=== PATIENT | male | born 1950 | race African-American/Black ===

== ENCOUNTER 2016-11-23 12:05 | Inpatient (IN) | payer OTHER ==
[~2016-11-23] VITALS: Ht 190.5 cm; Wt 120.4 kg
[2016-11-23] VITALS (10 sets, daily range): BP systolic 132–167; BP diastolic 72–90; PULSE 54–86; RESP 17–24; TEMP 97.8–99.3; O2SAT 96–100
[~2016-11-23 12:05] MED LIST: ALBU0.086 INH; ALBU6.7H INH; ALBU8I INH; INDO50 PO
[2016-11-23] MEDS ORDERED: VENTAER INH (12:26)
[2016-11-23] MEDS ORDERED: ASPIRIN 325 MG TAB PO ONE (12:30)
[2016-11-23] MEDS ORDERED: NITROGLYCERIN 0.4 MG SL 25 TABS/BTL SL ONE (12:30)
[2016-11-23] MEDS ORDERED: SODIUM CHLORID 0.9% 500 ML INJ 500 ML IV ONE (12:30)
--- NOTE | 2016-11-23 12:34 | PD ---
HPI Chief Complaint: Chest Pain Time Seen by Provider: 12:30 Travel History International Travel<30 days: No Contact w/Intl Traveler<30days: No Traveled to known affect area: No History of Present Illness HPI 66-year-old male that presents to the ED for evaluation of severe left-sided chest pain. Patient has had this since yesterday. Per patient is getting worse. Per patient he feels like it is spreading to his left shoulder. No history of heart disease but has a family history of heart disease. He states that he uses an inhaler for asthma but no other medications. He has not taken any aspirin or any medications for this. Denies any abdominal pain. Nausea or vomiting. Per patient she feels slightly short of breath. Per patient the pain is pressure-like any severe 8 out of 10. He does state having some diaphoresis. He takes no aspirin. He denies any blood thinner use. No recent travel. No smoking history recently but he does have an old smoking history. Has no waistband setter lockstitch. Follow up with the [facility] for his care. Takes no medications. PFSH Past Medical History Asthma: Yes COPD: Yes Diminished Hearing: No Respiratory: Yes (COPD) Tetanus Vaccination: Unknown Influenza Vaccination: No ?: Not Past Surgical History Other Surgery: Yes (lypoma removal l neck) Social History Alcohol Use: Yes (OCC) Tobacco Use: No Substance Use: No Allergies-Medications (Allergen,Severity, Reaction): Coded Allergies: No Known Allergies (Verified , 11/23/16) Reported Meds & Prescriptions Reported Meds & Active Scripts Active Reported Ventolin Hfa 18 GM Inh (Albuterol Sulfate) 90 Mcg/Act Aer 2 Puff INH Q4-6H PRN Review of Systems Except as stated in HPI: all other systems reviewed are Neg Physical Exam Narrative GENERAL: SKIN: Warm and dry. HEAD: Atraumatic. Normocephalic. EYES: Pupils equal and round. No scleral icterus. No injection or drainage. ENT: No nasal bleeding or discharge. Mucous membranes pink and moist. Tongue is midline. No uvula deviation. NECK: Trachea midline. No JVD. CARDIOVASCULAR: Regular rate and rhythm. No murmurs, S3, S4. Chest pain is not reproducible with touch. RESPIRATORY: No accessory muscle use. Clear to auscultation. Breath sounds equal bilaterally. GASTROINTESTINAL: Abdomen soft, non-tender, nondistended. Hepatic and splenic margins not palpable. MUSCULOSKELETAL: Extremities without clubbing, cyanosis, or edema. No obvious deformities. Full range of motion of the upper and lower extremities bilaterally. 2+ pulses bilaterally. NEUROLOGICAL: Awake and alert. No obvious cranial nerve deficits. Motor grossly within normal limits. Five out of 5 muscle strength in the arms and legs. Normal speech. PSYCHIATRIC: Appropriate mood and affect; insight and judgment normal. Data Data Last Documented VS Vital Signs Date Time Temp Pulse Resp B/P Pulse Ox O2 Delivery O2 Flow Rate FiO2 11/23/16 13:17 54 22 134/72 96 Room Air 11/23/16 12:08 97.8 Orders Electrocardiogram (11/23/16 12:22) Basic Metabolic Panel (Bmp) (11/23/16 12:22) Ckmb (Isoenzyme) Profile (11/23/16 12:22) Complete Blood Count With Diff (11/23/16 12:22) Magnesium (Mg) (11/23/16 12:22) Prothrombin Time / Inr (Pt) (11/23/16 12:22) Act Partial Throm Time (Ptt) (11/23/16 12:22) Troponin I (11/23/16 12:22) Chest, Single Ap (11/23/16 12:22) Ecg Monitoring (11/23/16 12:22) Bilateral Bp Monitoring (11/23/16 12:22) Iv Access Insert/Monitor (11/23/16 12:22) Oximetry (11/23/16 12:22) Oxygen Administration (11/23/16 12:22) Aspirin (Aspirin) (11/23/16 12:30) Nitroglycerin Sl (Nitrostat Sl) (11/23/16 12:30) Sodium Chlorid 0.9% 500 Ml Inj (Ns 500 M (11/23/16 12:30) CKMB (11/23/16 12:21) CKMB% (11/23/16 12:21) Morphine Inj (Morphine Inj) (11/23/16 13:15) Ondansetron Inj (Zofran Inj) (11/23/16 13:15) Admit Order (Ed Use Only) (11/23/16 13:15) Labs Laboratory Tests Test 11/23/16 12:21 White Blood Count 6.0 TH/MM3 Red Blood Count 5.23 MIL/MM3 Hemoglobin 16.0 GM/DL Hematocrit 46.7 % Mean Corpuscular Volume 89.2 FL Mean Corpuscular Hemoglobin 30.7 PG Mean Corpuscular Hemoglobin 34.4 % Concent Red Cell Distribution Width 13.0 % Platelet Count 186 TH/MM3 Mean Platelet Volume 9.3 FL Neutrophils (%) (Auto) 58.5 % Lymphocytes (%) (Auto) 29.9 % Monocytes (%) (Auto) 8.1 % Eosinophils (%) (Auto) 2.9 % Basophils (%) (Auto) 0.6 % Neutrophils # (Auto) 3.5 TH/MM3 Lymphocytes # (Auto) 1.8 TH/MM3 Monocytes # (Auto) 0.5 TH/MM3 Eosinophils # (Auto) 0.2 TH/MM3 Basophils # (Auto) 0.0 TH/MM3 CBC Comment DIFF FINAL Differential Comment Prothrombin Time 11.2 SEC Prothromb Time International 1.0 RATIO Ratio Activated Partial 28.0 SEC Thromboplast Time D-Dimer Quantitative (PE/DVT) 0.26 MG/L FEU Sodium Level 141 MEQ/L Potassium Level 3.9 MEQ/L Chloride Level 107 MEQ/L Carbon Dioxide Level 29.4 MEQ/L Anion Gap 5 MEQ/L Blood Urea Nitrogen 16 MG/DL Creatinine 1.38 MG/DL Estimat Glomerular Filtration 63 ML/MIN Rate Random Glucose 111 MG/DL Calcium Level 9.2 MG/DL Magnesium Level 2.0 MG/DL Total Creatine Kinase 146 U/L Creatine Kinase MB 1.3 NG/ML Troponin I LESS THAN 0.02 NG/ML Lipase 1046 U/L MDM Medical Decision Making Medical Screen Exam Complete: Yes Emergency Medical Condition: Yes Medical Record Reviewed: Yes Interpretation(s) EKG shows sinus rhythm with no sign of acute ischemia or arrhythmia read by me and attending Dr. Cardoza. CBC & BMP Diagram 11/23/16 12:21 troponin and CKMB negative D-dimmer negative Lipase 1000s Differential Diagnosis Chest pain versus cardiac chest pain versus ACS versus angina versus nSTEMI versus pneumothorax versus pneumonia versus mass Narrative Course 66-year-old male that presents to the ED for evaluation of left-sided chest pain. Patient was properly examined and was found to have signs and symptoms very concerning for ACS. Initial EKG was evaluated by me and my attending Dr. villegas and states that this is not a STEMI. No sign of LV be as well. At this time we'll do cardiac workup. Patient was given aspirin as well as nitroglycerin here. Labs and imaging showed no sign of acute disease. Troponin was negative. Patient still having some discomfort. Patient was given morphine as well as Zofran. Case was discussed in my attending Dr. Cardoza who agrees to admission to the chest pain center. Patient was admitted to chest pain center. Patient agrees with this. At 14:00 my attending evaluated the patient and recommends a lipase as patient continues to have some discomfort. Lipase positive of 1000. Likely this is acute pancreatitis and not cardiac in nature. Spoke with the residents who agreed to admission. Admission to the chest pain center was canceled and change to the residents for evaluation of acute pancreatitis. Diagnosis Primary Impression: Pancreatitis, acute Qualified Code: K85.90 - Acute pancreatitis, unspecified complication status, unspecified pancreatitis type Admitting Information Admitting Physician Requests: Vishal Lan Nov 23, 2016 12:34
--- NOTE | 2016-11-23 12:37 | RADRPT ---
EXAM DATE/TIME: 11/23/2016 12:19 [facility] COMPARISON: CHEST SINGLE AP, May 02, 2013, 20:02. INDICATIONS : Left side chest pain. MEDICAL HISTORY : None. SURGICAL HISTORY : None. ENCOUNTER: Initial ACUITY: 1 day PAIN SCORE: 7/10 LOCATION: Bilateral chest FINDINGS: A single view of the chest demonstrates the lungs to be symmetrically aerated without evidence of mas s, infiltrate or effusion. The cardiomediastinal contours are unremarkable. Osseous structures are intact. CONCLUSION: No acute disease. Kev Hines MD on November 23, 2016 at 12:34 Board Certified Radiologist. This report was verified electronically.
[2016-11-23 12:40] LABS: AUTOMATED NEUTROPHIL # 3.5 TH/MM3 (1.8-7.7); BASOPHIL % 0.6 % (0.0-2.0); EOSINOPHIL # 0.2 TH/MM3 (0-0.4); EOSINOPHIL % 2.9 % (0.0-4.0); HEMATOCRIT 46.7 % (39.0-51.0); HEMO FLAGS DIFF FINAL; LYMPH % 29.9 % (9.0-44.0); LYMPHOCYTE # 1.8 TH/MM3 (1.0-4.8); MEAN CELL VOLUME 89.2 FL (80.0-100.0); MEAN CORPUSCULAR HEMOGLOBIN 30.7 PG (27.0-34.0); MEAN CORPUSCULAR HGB CONC 34.4 % (32.0-36.0); MONO % 8.1 % (0.0-8.0); NEUT % 58.5 % (16.0-70.0); PLATELET COUNT 186 TH/MM3 (150-450); RED BLOOD COUNT 5.23 MIL/MM3 (4.50-5.90)
[2016-11-23 12:51] LABS: ANION GAP 5 MEQ/L (5-15); BICARBONATE 29.4 MEQ/L (21.0-32.0); BLOOD UREA NITROGEN 16 MG/DL (7-18); CHLORIDE 107 MEQ/L (98-107); GLOMERULAR FILTRATION RATE 63 ML/MIN (>89); POTASSIUM 3.9 MEQ/L (3.5-5.1); SODIUM (NA) 141 MEQ/L (136-145)
[2016-11-23 12:55] LABS: CREATINE KINASE 146 U/L (39-308)
[2016-11-23 12:59] LABS: PROTHROMBIN TIME - PATIENT 11.2 SEC (9.8-11.6)
[2016-11-23 13:08] LABS: CKMB 1.3 NG/ML (0.5-3.6)
[2016-11-23] MEDS ORDERED: MORPHINE SULFATE 4 MG/ML INJ IV PUSH ONE (13:15)
[2016-11-23] MEDS ORDERED: ONDANSETRON HCL 4 MG/2 ML VIAL IV PUSH ONE (13:15)
[2016-11-23] MEDS ORDERED: SODIUM CHLOR 0.9% 1000 ML INJ 1,000 ML IV SCH (14:02)
--- NOTE | 2016-11-23 14:52 | HHI.HP ---
[facility] Service Family Medicine Primary Care Physician [facility] Admission Diagnosis chest pain, R/o ACS Diagnoses: International Travel<30 Days: No Contact w/Intl Traveler<30days: No Known Affected Area: No History of Present Illness 66 y/o M w/ hx of bronchitis presents with left sided chest pain radiating to the shoulder and back. He describes pain as initially 10/10 aching and pleuritic. Is relieved by morphine .Worse with movement. Uses a combivent PRN for shortness of breath from bronchitis. Has no other medical conditions. Eats a fatty diet. Ate fried pork and fried chicken last night and a burger two days ago. Denies ETOH use, smoking, drug use, and OTC meds. Endorses feeling palpitations in the past couple of days and feeling dizzy while walking. Describes these spells as lasting a very short period of time while walking. Describes weight loss from 230 to 260 over last month due to decreased appetite. Denies orthostasis, visual disturbances, syncope, seizure hx, or cough. Denies nausea/vomiting, diarrhea, melena. (Court Deleon MD R1) Review of Systems Constitutional: COMPLAINS OF: Weight loss (down from 230 to 260 over last month ), DENIES: Fever, Change in appetite, Night Sweats Endocrine: DENIES: Heat/cold intolerance, Polydipsia, Polyuria Eyes: COMPLAINS OF: Blurred vision, DENIES: Vision loss, Double Vision Ears, nose, mouth, throat: DENIES: Hearing loss, Vertigo, Hoarseness Respiratory: DENIES: Cough, Snoring, Shortness of breath Cardiovascular: COMPLAINS OF: Chest pain, Palpitations, DENIES: Lower Extremity Edema Gastrointestinal: COMPLAINS OF: Abdominal pain, DENIES: Bloody stools, Diarrhea, Vomiting Genitourinary: DENIES: Urinary incontinence, Urgency, Dysuria Musculoskeletal: COMPLAINS OF: Joint pain, DENIES: Muscle aches, Back pain Integumentary: DENIES: Abnormal pigmentation, Pruritus, Rash Hematologic/lymphatic: DENIES: Bruising Neurologic: DENIES: Abnormal gait, Headache, Paresthesias Psychiatric: DENIES: Anxiety, Depression, Agitation (Court Deleon MD R1) Past Family Social History Past Medical History Bronchitis, uses Combivent inhaler as needed. Past Surgical History Lipoma 2004 (Court Deleon MD R1) Allergies: Coded Allergies: No Known Allergies (Verified , 11/23/16) Family History Father 67, CHF Mother 90, pulmonary fibrosis Social History no drugs. occasional alcohol (a few times a month). (Court Deleon MD R1) Physical Exam Vital Signs Vital Signs Date Time Temp Pulse Resp B/P Pulse Ox O2 Delivery O2 Flow Rate FiO2 11/23/16 14:16 59 17 139/73 100 Nasal Cannula 2 11/23/16 14:06 17 11/23/16 13:18 98 Nasal Cannula 2 11/23/16 13:17 54 22 134/72 96 Room Air 11/23/16 12:24 98 Room Air 11/23/16 12:24 98 Room Air 11/23/16 12:21 61 21 149/79 98 Room Air 11/23/16 12:08 97.8 54 24 159/82 96 Room Air Physical Exam GENERAL: This is a well-nourished, well-developed patient, in no apparent distress. SKIN: Cool and dry. HEAD: Atraumatic. Normocephalic. EYES: Extraocular motions intact. No scleral icterus. No injection or drainage. NECK: Trachea midline. No JVD. CARDIOVASCULAR: Regular rate and rhythm without murmurs, gallops, or rubs. RESPIRATORY: Clear to auscultation. Breath sounds equal bilaterally. No wheezes , rales, or rhonchi. GASTROINTESTINAL: Abdomen soft, nondistended, left quadrant slightly tender to palpation. No hepato-splenomegaly, or palpable masses. No guarding. MUSCULOSKELETAL: Extremities without edema. ROM normal. NEUROLOGICAL: Awake and alert. Laboratory Laboratory Tests Test 11/23/16 12:21 White Blood Count 6.0 Red Blood Count 5.23 Hemoglobin 16.0 Hematocrit 46.7 Mean Corpuscular Volume 89.2 Mean Corpuscular Hemoglobin 30.7 Mean Corpuscular Hemoglobin 34.4 Concent Red Cell Distribution Width 13.0 Platelet Count 186 Mean Platelet Volume 9.3 Neutrophils (%) (Auto) 58.5 Lymphocytes (%) (Auto) 29.9 Monocytes (%) (Auto) 8.1 Eosinophils (%) (Auto) 2.9 Basophils (%) (Auto) 0.6 Neutrophils # (Auto) 3.5 Lymphocytes # (Auto) 1.8 Monocytes # (Auto) 0.5 Eosinophils # (Auto) 0.2 Basophils # (Auto) 0.0 CBC Comment DIFF FINAL Differential Comment Prothrombin Time 11.2 Prothromb Time International 1.0 Ratio Activated Partial 28.0 Thromboplast Time D-Dimer Quantitative (PE/DVT) 0.26 Sodium Level 141 Potassium Level 3.9 Chloride Level 107 Carbon Dioxide Level 29.4 Anion Gap 5 Blood Urea Nitrogen 16 Creatinine 1.38 Estimat Glomerular Filtration 63 Rate Random Glucose 111 Calcium Level 9.2 Magnesium Level 2.0 Total Creatine Kinase 146 Creatine Kinase MB 1.3 Troponin I LESS THAN 0.02 Lipase 1046 (Court Deleon MD R1) Result Diagram: 11/23/16 1221 11/23/16 1221 Imaging Last 24 hours Impressions Gall Bladder Ultrasound 11/23/16 1459 Signed Impressions: Service Date/Time: Wednesday, November 23, 2016 16:17 - CONCLUSION: Right renal cyst. The pancreas is not visualized on this ultrasound examination. Riki Powers MD Abdomen/Pelvis CT 11/23/16 7573 Signed Impressions: Service Date/Time: Wednesday, November 23, 2016 15:51 - CONCLUSION: 1. Prominence and heterogeneity of the pancreatic uncinate process. This is likely within normal limits. The fat around the pancreas appears normal. A distinct mass is not seen. Focal pancreatitis without surrounding inflammatory change cannot be excluded. One could follow this mild prominence of the uncinate process with an MRI examination is an outpatient. 2. Hepatic cysts. 3. Mild atelectasis or consolidation of the lung bases being worse on the left. 4. Small subcentimeter hypodensity in the liver. This is nonspecific. Statistically likely representing cyst or hemangioma. Riki Powers MD Chest X-Ray 11/23/16 1222 Signed Impressions: Service Date/Time: Wednesday, November 23, 2016 12:19 - CONCLUSION: No acute disease. Kev Hines MD Course Recieved IV NS, NO PO 1x, ASA PO. EKG and lipase ordered, Troponins ordered, PT , PTT,, CMB, Zofran, morphine push 1x in the ED. NPO. Admitted to floor, placed on NPO, LR, morphine 5 mg push PRN, dilaudid 1 mg IV PRN, Zofran. (Court Deleon MD R1) Assessment and Plan Assessment and Plan 66 y/o M admitted for pancreatitis. // Upper quadrant abdominal pain - diff: pancreatitis secondary to choledocholithiasis v idiopathic v pancreatic carcinoma - pain radiating to shoulder, lipase 1046 , wt loss of 30 lbs over a month - WBC wnl - CT and U/S do not show obstruction of biliary, pancreatic or hepatic ducts - Will order LDH, serum amylase, and LFTs to further determine cause - CBC, CMP, LFTs tomorrow - Continue NPO, IV fluids (LR 250ml/hr with 10meq K+), and morphine and diluadid for pain // Atelactasis (mild) of lung bases - satting 100% on 2 L/min NC - denies SOB - duonebs PRN, incentive spirometry - pain control for deep inspiration - will continue to monitor for improvement // FEN - NPO //Code: FULL //DVT Prophy: Lovenox // Dispo: Monitor overnight and assess for improvement in labs and pain tomorrow. Court Deleon MD R1 Code Status FULL Discussed Condition With Patient and daughter at bedside. (Court Deleon MD R1) Attending Attestation Patient seen and examined. Case reviewed and discussed with the resident team. Agree with plan of care as discussed with me and documented in the resident note. present during history and exam in entirety with Dr Deleon (Nerissa Ray MD) Problem List: (1) Pancreatitis, acute Status: Acute (Court Deleon MD R1) Physician Certification 2 Midnight Certification Type: Admission for Inpatient Services Order for Inpatient Services The services are ordered in accordance with Medicare regulations or non- Medicare payer requirements, as applicable. In the case of services not specified as inpatient-only, they are appropriately provided as inpatient services in accordance with the 2-midnight benchmark. Estimated LOS (days): 2 days is the estimated time the patient will need to remain in the hospital, assuming treatment plan goals are met and no additional complications. Post-Hospital Plan: Home (Court Deleon MD R1) Post-Hospital Plan: Home (Nerissa Ray MD) Problem Qualifiers (1) Pancreatitis, acute: Qualified Code: K85.00 - Idiopathic acute pancreatitis without infection or necrosis Court Deleon MD R1 Nov 23, 2016 14:52 Nerissa Ray MD Nov 24, 2016 15:35
--- NOTE | 2016-11-23 14:59 | PD ---
Data Data Last Documented VS Vital Signs Date Time Temp Pulse Resp B/P Pulse Ox O2 Delivery O2 Flow Rate FiO2 11/23/16 13:17 54 22 134/72 96 Room Air 11/23/16 12:08 97.8 Orders Electrocardiogram (11/23/16 12:22) Basic Metabolic Panel (Bmp) (11/23/16 12:22) Ckmb (Isoenzyme) Profile (11/23/16 12:22) Complete Blood Count With Diff (11/23/16 12:22) Magnesium (Mg) (11/23/16 12:22) Prothrombin Time / Inr (Pt) (11/23/16 12:22) Act Partial Throm Time (Ptt) (11/23/16 12:22) Troponin I (11/23/16 12:22) Chest, Single Ap (11/23/16 12:22) Ecg Monitoring (11/23/16 12:22) Bilateral Bp Monitoring (11/23/16 12:22) Iv Access Insert/Monitor (11/23/16 12:22) Oximetry (11/23/16 12:22) Oxygen Administration (11/23/16 12:22) Aspirin (Aspirin) (11/23/16 12:30) Nitroglycerin Sl (Nitrostat Sl) (11/23/16 12:30) Sodium Chlorid 0.9% 500 Ml Inj (Ns 500 M (11/23/16 12:30) CKMB (11/23/16 12:21) CKMB% (11/23/16 12:21) Morphine Inj (Morphine Inj) (11/23/16 13:15) Ondansetron Inj (Zofran Inj) (11/23/16 13:15) Admit Order (Ed Use Only) (11/23/16 13:15) Labs Laboratory Tests Test 11/23/16 12:21 White Blood Count 6.0 TH/MM3 Red Blood Count 5.23 MIL/MM3 Hemoglobin 16.0 GM/DL Hematocrit 46.7 % Mean Corpuscular Volume 89.2 FL Mean Corpuscular Hemoglobin 30.7 PG Mean Corpuscular Hemoglobin 34.4 % Concent Red Cell Distribution Width 13.0 % Platelet Count 186 TH/MM3 Mean Platelet Volume 9.3 FL Neutrophils (%) (Auto) 58.5 % Lymphocytes (%) (Auto) 29.9 % Monocytes (%) (Auto) 8.1 % Eosinophils (%) (Auto) 2.9 % Basophils (%) (Auto) 0.6 % Neutrophils # (Auto) 3.5 TH/MM3 Lymphocytes # (Auto) 1.8 TH/MM3 Monocytes # (Auto) 0.5 TH/MM3 Eosinophils # (Auto) 0.2 TH/MM3 Basophils # (Auto) 0.0 TH/MM3 CBC Comment DIFF FINAL Differential Comment Prothrombin Time 11.2 SEC Prothromb Time International 1.0 RATIO Ratio Activated Partial 28.0 SEC Thromboplast Time D-Dimer Quantitative (PE/DVT) 0.26 MG/L FEU Sodium Level 141 MEQ/L Potassium Level 3.9 MEQ/L Chloride Level 107 MEQ/L Carbon Dioxide Level 29.4 MEQ/L Anion Gap 5 MEQ/L Blood Urea Nitrogen 16 MG/DL Creatinine 1.38 MG/DL Estimat Glomerular Filtration 63 ML/MIN Rate Random Glucose 111 MG/DL Calcium Level 9.2 MG/DL Magnesium Level 2.0 MG/DL Total Creatine Kinase 146 U/L Creatine Kinase MB 1.3 NG/ML Troponin I LESS THAN 0.02 NG/ML Lipase 1046 U/L [facility] Supervised Visit with JEY: Yes Narrative Course The history, exam, and medical decision-making in the associated midlevel provider note were completed with my assistance. I reviewed and agree with the findings presented. I attest that I had a [id number] encounter with the patient on the same day, and personally performed and documented my assessment and findings in the medical record. *My assessment and Findings: This is a 66-year-old male who presents to the emergency department with left-sided chest and abdominal pain. He describes the pain as right underneath his rib cage. He has felt somewhat nauseous and short of breath. EKG is nonischemic. Labs were obtained which demonstrate a lipase of 1000. I suspect this is acute pancreatitis. Patient will be admitted for pain control. Diagnosis Primary Impression: Pancreatitis, acute Qualified Code: K85.90 - Acute pancreatitis, unspecified complication status, unspecified pancreatitis type Rosalba Cardoza MD Nov 23, 2016 14:59
[2016-11-23] MEDS ORDERED: KETOROLAC TROMETHAMINE 30 MG/ML (IVP) VIAL IVP PRN (15:00)
[2016-11-23] MEDS ORDERED: HYDROmorphone HCL PF 1 MG/ML VIAL IV PRN (15:00)
[2016-11-23] MEDS ORDERED: ONDANSETRON HCL 4 MG/2 ML VIAL IV PRN (15:00)
[2016-11-23] MEDS ORDERED: SODIUM CHLORIDE 0.9% FLUSH 10 ML FLUSH IV FLUSH PRN (15:00)
[2016-11-23] MEDS ORDERED: POTASSIUM CHLORIDE INJ 20 MEQ in SODIUM CHLOR 0.9% 1000 ML INJ 1,000 ML IV SCH (15:45)
[2016-11-23] MEDS: ENOXAPARIN SODIUM 40 MG/0.4 ML SYRINGE SQ SCH (16:00)
[2016-11-23] MEDS: POTASSIUM CHLORIDE INJ 10 MEQ in LACTATED RINGER'S 1000 ML INJ 1,000 ML IV SCH ×2 (16:00→21:41)
[2016-11-23] MEDS: RESP: ALBUTEROL 2.5 MG/IPRATROPIUM 0.5 MG NEB (SCH) NEB ×2 (16:21→19:37)
[2016-11-23] MEDS ORDERED: IOHEXOL 350 MG/ML 10 ML VIAL (for RAD DIAG) IV ONE (16:22)
--- NOTE | 2016-11-23 17:00 | RADRPT ---
EXAM DATE/TIME: 11/23/2016 15:51 [facility] COMPARISON: No previous studies available for comparison. INDICATIONS : Left upper abdomen pain today. IV CONTRAST: 86 cc Omnipaque 350 (iohexol) IV ORAL CONTRAST: No oral contrast ingested. RADIATION DOSE: 10.56 CTDIvol (mGy) MEDICAL HISTORY : lipoma SURGICAL HISTORY : lipoma removed from neck ENCOUNTER: Initial ACUITY: 1 day PAIN SCALE: 7/10 LOCATION: Left upper quadrant TECHNIQUE: Volumetric scanning of the abdomen and pelvis was performed. Using automated exposure control and ad justment of the mA and/or kV according to patient size, radiation dose was kept as low as reasonably achievable to obtain optimal diagnostic quality images. DICOM format image data is available electro nically for review and comparison. FINDINGS: LOWER LUNGS: There is mild increased density at the medial bases bilaterally being more prominent on the left. LIVER: Homogeneous density. There is a 0.8 cm hypodensity in the posterior superior aspect of the right lobe of the liver. There is no dilation of the biliary tree. No calcified gallstones. SPLEEN: Normal size without lesion. PANCREAS: Pancreatic head, body and tail appear normal. The uncinate process appears somewhat prominent and het erogeneous. A distinct mass is not seen. KIDNEYS: Normal in size and shape. There is no solid mass, stone or hydronephrosis. There is a 3.2 cm cyst at the anterior superior right kidney and a 1.3 cm cyst in the posterior mid left kidney. ADRENAL GLANDS: Within normal limits. VASCULAR: There is no aortic aneurysm. BOWEL/MESENTERY: The stomach, small bowel, and colon demonstrate no acute abnormality. There is no free intraperitone al air or fluid. ABDOMINAL WALL: Within normal limits. RETROPERITONEUM: There is no lymphadenopathy. BLADDER: No wall thickening or mass. REPRODUCTIVE: The prostate appears prominent. INGUINAL: There is no lymphadenopathy or hernia. MUSCULOSKELETAL: There is degenerative change of the lower lumbar spine. CONCLUSION: 1. Prominence and heterogeneity of the pancreatic uncinate process. This is likely within normal limi ts. The fat around the pancreas appears normal. A distinct mass is not seen. Focal pancreatitis witho ut surrounding inflammatory change cannot be excluded. One could follow this mild prominence of the u ncinate process with an MRI examination is an outpatient. 2. Hepatic cysts. 3. Mild atelectasis or consolidation of the lung bases being worse on the left. 4. Small subcentimeter hypodensity in the liver. This is nonspecific. Statistically likely representi ng cyst or hemangioma. Riki Powers MD on November 23, 2016 at 16:47 Board Certified Radiologist. This report was verified electronically.
--- NOTE | 2016-11-23 17:10 | RADRPT ---
EXAM DATE/TIME: 11/23/2016 16:17 [facility] COMPARISON: CT ABDOMEN & PELVIS W CONTRAST, November 23, 2016, 15:51. INDICATIONS : Abdominal pain. MEDICAL HISTORY : Chronic obstructive pulmonary disease. Asthma. Abdominal pain. Weight loss. Joint pain. Urticaria . SURGICAL HISTORY : Lypoma removal. ENCOUNTER: Initial ACUITY: 4-6 days PAIN SCORE: 3/10 LOCATION: Right upper quadrant MEASUREMENTS: LIVER: 15.8 cm length COMMON DUCT: 4 mm RIGHT KIDNEY: 11.0 x 4.8 x 5.1 cm FINDINGS: LIVER: Normal echotexture without focal lesion or ductal dilatation. COMMON DUCT: No intraluminal mass or stone visualized. GALLBLADDER: Contains no stones, demonstrates no wall thickening or pericholecystic fluid. PANCREAS: The pancreas is obscured by bowel gas. RIGHT KIDNEY: No evidence of hydronephrosis, stone, or solid mass. There is a 3.4 cm cyst at the upper pole. CONCLUSION: Right renal cyst. The pancreas is not visualized on this ultrasound examination. Riki Powers MD on November 23, 2016 at 17:06 Board Certified Radiologist. This report was verified electronically.
[2016-11-23] MEDS: MORPHINE SULFATE 8 MG/ML INJ IV PUSH PRN ×2 (18:01→21:51)
[2016-11-23 19:49] LABS: INDIRECT BILIRUBIN 0.4 MG/DL (0.0-0.8); TOTAL BILIRUBIN ADULT 0.5 MG/DL (0.2-1.0)
--- NOTE | 2016-11-23 21:40 | HHI.PR ---
Addendum to Inpatient Note Addendum Reason: Corrected Documentation Additional Information Patient is DNR. Court Deleon MD R1 Nov 23, 2016 21:40
[2016-11-23] MEDS: SODIUM CHLORIDE 0.9% FLUSH 10 ML FLUSH IV FLUSH SCH (21:41)
[2016-11-24] VITALS (9 sets, daily range): BP systolic 104–128; BP diastolic 60–78; PULSE 65–82; RESP 17–18; TEMP 98–98.9; O2SAT 94–98
[2016-11-24] MEDS: POTASSIUM CHLORIDE INJ 10 MEQ in LACTATED RINGER'S 1000 ML INJ 1,000 ML IV SCH ×5 (00:04→18:07)
[2016-11-24] MEDS: RESP: ALBUTEROL 2.5 MG/IPRATROPIUM 0.5 MG NEB (SCH) NEB ×4 (07:54→19:56)
[2016-11-24] MEDS: SODIUM CHLORIDE 0.9% FLUSH 10 ML FLUSH IV FLUSH SCH ×2 (09:00→21:00)
[2016-11-24] MEDS ORDERED: ACETAMINOPHEN 325 MG TAB PO PRN (10:15)
[2016-11-24] MEDS ORDERED: NALOXONE HCL 0.4 MG/ML AMP IV PRN (10:15)
[2016-11-24] MEDS ORDERED: ACETAMINOPHEN/HYDROcodone 325 MG/5 MG TAB PO PRN (10:15)
[2016-11-24] MEDS ORDERED: ACETAMINOPHEN/HYDROcodone 325 MG/7.5 MG TAB PO PRN (10:15)
[2016-11-24 10:25] LABS: AUTOMATED NEUTROPHIL # 4.2 TH/MM3 (1.8-7.7); BASOPHIL % 0.6 % (0.0-2.0); EOSINOPHIL % 0.6 % (0.0-4.0); HEMATOCRIT 39.5 % (39.0-51.0); HEMO FLAGS DIFF FINAL; LYMPH % 21.3 % (9.0-44.0); LYMPHOCYTE # 1.4 TH/MM3 (1.0-4.8); MEAN CELL VOLUME 88.6 FL (80.0-100.0); MEAN CORPUSCULAR HEMOGLOBIN 31.7 PG (27.0-34.0); MEAN CORPUSCULAR HGB CONC 35.8 % (32.0-36.0); MONO % 12.2 % (0.0-8.0); NEUT % 65.3 % (16.0-70.0); PLATELET COUNT 152 TH/MM3 (150-450); RED BLOOD COUNT 4.46 MIL/MM3 (4.50-5.90); WHITE BLOOD COUNT 6.4 TH/MM3 (4.0-11.0)
[2016-11-24 10:55] LABS: ALKALINE PHOSPHATASE 64 U/L (45-117); ALT (GPT) 21 U/L (12-78); AMYLASE 59 U/L (25-115); ANION GAP 6 MEQ/L (5-15); AST (GOT) 11 U/L (15-37); BICARBONATE 27.3 MEQ/L (21.0-32.0); BLOOD UREA NITROGEN 11 MG/DL (7-18); CHLORIDE 105 MEQ/L (98-107); GLOMERULAR FILTRATION RATE 90 ML/MIN (>89); POTASSIUM 3.6 MEQ/L (3.5-5.1); SODIUM (NA) 138 MEQ/L (136-145); TOTAL BILIRUBIN ADULT 0.9 MG/DL (0.2-1.0)
--- NOTE | 2016-11-24 11:44 | HHI.HP ---
[facility] Service Family Medicine Primary Care Physician [facility] Admission Diagnosis chest pain, R/o ACS Diagnoses: (1) Pancreatitis, acute Diagnosis: Principal International Travel<30 Days: No Contact w/Intl Traveler<30days: No Known Affected Area: No History of Present Illness Mr York is a 66 y/o M w/ hx of bronchitis who presented with left sided chest pain radiating to the shoulder and back. He describes pain as initially 10/10 aching and pleuritic. Is relieved by morphine .Worse with movement and especially deep breathing. Uses a combivent PRN for shortness of breath from bronchitis. Has no other medical conditions. Eats a fatty diet. Ate fried pork and fried chicken last night and a burger two days ago. Denies ETOH use, smoking , drug use, and OTC meds. Endorses feeling palpitations in the past couple of days and feeling dizzy while walking. Describes these spells as lasting a very short period of time while walking. Describes weight loss from 260 to 230 over last month due to decreased appetite. Denies orthostasis, visual disturbances, syncope, seizure hx, or cough. Denies nausea/vomiting, diarrhea, melena. Overnight, his pain diminished to little or nothing. His studies of his gallbladder and pancreas showed no stones or obstruction. He is thirsty today but concerned about his overall health and his pancreatitis. However, his lipase dropped bvery dramatically and he will be given po meds and clear liquids advancing as tolerated. Review of Systems Other Constitutional: COMPLAINS OF: Weight loss (down from 230 to 260 over last month ), DENIES: Fever, Change in appetite, Night Sweats Endocrine: DENIES: Heat/cold intolerance, Polydipsia, Polyuria Eyes: COMPLAINS OF: Blurred vision, DENIES: Vision loss, Double Vision Ears, nose, mouth, throat: DENIES: Hearing loss, Vertigo, Hoarseness Respiratory: DENIES: Cough, Snoring, Shortness of breath Cardiovascular: COMPLAINS OF: Chest pain, Palpitations, DENIES: Lower Extremity Edema Gastrointestinal: COMPLAINS OF: Abdominal pain, DENIES: Bloody stools, Diarrhea, Vomiting Genitourinary: DENIES: Urinary incontinence, Urgency, Dysuria Musculoskeletal: COMPLAINS OF: Joint pain, DENIES: Muscle aches, Back pain Integumentary: DENIES: Abnormal pigmentation, Pruritus, Rash Hematologic/lymphatic: DENIES: Bruising Neurologic: DENIES: Abnormal gait, Headache, Paresthesias Psychiatric: DENIES: Anxiety, Depression, Agitation Past Family Social History Past Medical History Bronchitis, uses Combivent inhaler as needed. Past Surgical History Lipoma 2004 Allergies: Coded Allergies: No Known Allergies (Verified , 11/23/16) Family History Father 67, CHF Mother 90, pulmonary fibrosis Social History no drugs. occasional alcohol (a few times a month). Physical Exam Vital Signs Vital Signs Date Time Temp Pulse Resp B/P Pulse Ox O2 Delivery O2 Flow Rate FiO2 11/24/16 08:00 98.6 74 17 109/65 97 11/24/16 07:58 98 Nasal Cannula 2.00 11/24/16 04:00 Room Air 11/24/16 04:00 98.7 70 18 118/69 98 11/24/16 00:00 Room Air 11/24/16 00:00 98.9 82 18 128/78 95 11/23/16 20:00 99.3 86 18 132/72 97 11/23/16 20:00 Room Air 11/23/16 20:00 81 11/23/16 19:40 97 Nasal Cannula 2.00 11/23/16 17:12 97.9 69 22 154/79 100 11/23/16 16:08 69 17 167/90 98 Nasal Cannula 2 11/23/16 15:09 100 Nasal Cannula 2.00 11/23/16 14:16 59 17 139/73 100 Nasal Cannula 2 11/23/16 14:06 17 11/23/16 13:18 98 Nasal Cannula 2 11/23/16 13:17 54 22 134/72 96 Room Air 11/23/16 12:24 98 Room Air 11/23/16 12:24 98 Room Air 11/23/16 12:21 61 21 149/79 98 Room Air 11/23/16 12:08 97.8 54 24 159/82 96 Room Air Physical Exam GENERAL: This is a well-nourished, well-developed patient, in no apparent distress. Initially he has pain in the ED which was partially relieved with morphine but now he is pain free SKIN: Cool and dry. HEAD: Atraumatic. Normocephalic. EYES: Extraocular motions intact. No scleral icterus. No injection or drainage. NECK: Trachea midline. No JVD. CARDIOVASCULAR: Regular rate and rhythm without murmurs, gallops, or rubs. RESPIRATORY: Clear to auscultation. Breath sounds equal bilaterally. No wheezes , rales, or rhonchi. GASTROINTESTINAL: Abdomen soft, nondistended, left quadrant slightly tender to palpation. No hepato-splenomegaly, or palpable masses. No guarding. He points to area of LUQ right under his ribs as the area of pain and described it as "4 quadrants trying to move and rearrange themselves" MUSCULOSKELETAL: Extremities without edema. ROM normal. NEUROLOGICAL: Awake and alert. A little anxious but reassured when his labs and imaging was explained to him Laboratory Laboratory Tests Test 11/23/16 11/24/16 12:21 10:10 White Blood Count 6.0 6.4 Red Blood Count 5.23 4.46 Hemoglobin 16.0 14.2 Hematocrit 46.7 39.5 Mean Corpuscular Volume 89.2 88.6 Mean Corpuscular Hemoglobin 30.7 31.7 Mean Corpuscular Hemoglobin 34.4 35.8 Concent Red Cell Distribution Width 13.0 13.0 Platelet Count 186 152 Mean Platelet Volume 9.3 9.4 Neutrophils (%) (Auto) 58.5 65.3 Lymphocytes (%) (Auto) 29.9 21.3 Monocytes (%) (Auto) 8.1 12.2 Eosinophils (%) (Auto) 2.9 0.6 Basophils (%) (Auto) 0.6 0.6 Neutrophils # (Auto) 3.5 4.2 Lymphocytes # (Auto) 1.8 1.4 Monocytes # (Auto) 0.5 0.8 Eosinophils # (Auto) 0.2 0.0 Basophils # (Auto) 0.0 0.0 CBC Comment DIFF FINAL DIFF FINAL Differential Comment Prothrombin Time 11.2 Prothromb Time International 1.0 Ratio Activated Partial 28.0 Thromboplast Time D-Dimer Quantitative (PE/DVT) 0.26 Sodium Level 141 138 Potassium Level 3.9 3.6 Chloride Level 107 105 Carbon Dioxide Level 29.4 27.3 Anion Gap 5 6 Blood Urea Nitrogen 16 11 Creatinine 1.38 1.01 Estimat Glomerular Filtration 63 90 Rate Random Glucose 111 99 Calcium Level 9.2 8.5 Magnesium Level 2.0 Total Bilirubin 0.5 0.9 Direct Bilirubin 0.1 Indirect Bilirubin 0.4 Aspartate Amino Transf 23 11 (AST/SGOT) Alanine Aminotransferase 26 21 (ALT/SGPT) Alkaline Phosphatase 80 64 Lactate Dehydrogenase 303 Total Creatine Kinase 146 Creatine Kinase MB 1.3 Troponin I LESS THAN 0.02 Total Protein 7.5 6.3 Albumin 3.9 3.1 Triglycerides Level 113 Lipase 1046 144 Amylase Level 59 Result Diagram: 11/24/16 1010 11/24/16 1010 Imaging Last 24 hours Impressions Gall Bladder Ultrasound 11/23/16 1459 Signed Impressions: Service Date/Time: Wednesday, November 23, 2016 16:17 - CONCLUSION: Right renal cyst. The pancreas is not visualized on this ultrasound examination. Riki Powers MD Abdomen/Pelvis CT 11/23/16 1459 Signed Impressions: Service Date/Time: Wednesday, November 23, 2016 15:51 - CONCLUSION: 1. Prominence and heterogeneity of the pancreatic uncinate process. This is likely within normal limits. The fat around the pancreas appears normal. A distinct mass is not seen. Focal pancreatitis without surrounding inflammatory change cannot be excluded. One could follow this mild prominence of the uncinate process with an MRI examination is an outpatient. 2. Hepatic cysts. 3. Mild atelectasis or consolidation of the lung bases being worse on the left. 4. Small subcentimeter hypodensity in the liver. This is nonspecific. Statistically likely representing cyst or hemangioma. Riki Powers MD Chest X-Ray 11/23/16 1222 Signed Impressions: Service Date/Time: Wednesday, November 23, 2016 12:19 - CONCLUSION: No acute disease. Kev Hines MD Assessment and Plan Assessment and Plan 66 y/o M admitted for pancreatitis. // Upper quadrant abdominal pain - diff: pancreatitis secondary to choledocholithiasis v idiopathic v pancreatic carcinoma, images and labs reassuring - pain radiating to shoulder, lipase 1046 , wt loss of 30 lbs over a month, better lipase now - WBC wnl - CT and U/S do not show obstruction of biliary, pancreatic or hepatic ducts - Will order LDH, serum amylase, and LFTs to further determine cause - CBC, CMP, LFTs tomorrow - NPO initially, IV fluids (LR 175ml/hr with 10meq K+), and morphine and diluadid for pain initially but will give po today // Atelactasis (mild) of lung bases - satting 100% on 2 L/min NC - denies SOB - duonebs PRN, incentive spirometry - pain control for deep inspiration - will continue to monitor for improvement // FEN - NPO //Code: FULL //DVT Prophy: Lovenox // Dispo: Monitor overnight and assess for improvement in labs and pain tomorrow. Court Deleon MD R1 Problem List: (1) Pancreatitis, acute Status: Acute Plan: see above Physician Certification 2 Midnight Certification Type: Admission for Inpatient Services Order for Inpatient Services The services are ordered in accordance with Medicare regulations or non- Medicare payer requirements, as applicable. In the case of services not specified as inpatient-only, they are appropriately provided as inpatient services in accordance with the 2-midnight benchmark. Estimated LOS (days): 3 3 days is the estimated time the patient will need to remain in the hospital, assuming treatment plan goals are met and no additional complications. Post-Hospital Plan: Home Problem Qualifiers (1) Pancreatitis, acute: Qualified Code: K85.00 - Idiopathic acute pancreatitis without infection or necrosis Nerissa Ray MD Nov 24, 2016 11:44
[2016-11-24] MEDS ORDERED: IPRAAER INH (13:26)
[2016-11-24] MEDS ORDERED: NORC5TAB PO (13:26)
--- NOTE | 2016-11-24 13:28 | HHI.DCPOC ---
Discharge Care Plan Diagnosis: (1) Pancreatitis, acute Goals to Promote Your Health * To prevent worsening of your condition and complications * To maintain your health at the optimal level Directions to Meet Your Goals Take your medications as prescribed Follow your dietary instruction Follow activity as directed Keep your appointments as scheduled Take your immunizations and boosters as scheduled If your symptoms worsen call your PCP, if no PCP go to Urgent Care Center or Emergency Room Smoking is Dangerous to Your Health. Avoid second hand smoke Call the 24-hour hour crisis hotline for domestic abuse at Court Deleon MD R1 Nov 24, 2016 13:28
--- NOTE | 2016-11-24 14:30 | EKG ---
Date Performed: 11/23/2016 Time Performed: 12:23:57 PTAGE: 66 years EKG: SINUS BRADYCARDIA ST ELEVATION, PROBABLY EARLY REPOLARIZATION BORDERLINE ECG PREVIOUS TRACING : 11/23/2016 12.22 Since the prior tracing, the sinus tachycardia and possible right atrial enlargement are no longer evident. DOCTOR: Irene Delgado Interpretating Date/Time 11/24/2016 14:28:17
[2016-11-24] MEDS: ENOXAPARIN SODIUM 40 MG/0.4 ML SYRINGE SQ SCH (16:00)
[2016-11-25] VITALS: BP 136/70; PULSE 73; RESP 18; TEMP 98.8; O2SAT 94
[2016-11-25] MEDS: POTASSIUM CHLORIDE INJ 10 MEQ in LACTATED RINGER'S 1000 ML INJ 1,000 ML IV SCH ×2 (00:38→03:39)
[2016-11-25 04:00] VITALS: BP 134/70; PULSE 66; RESP 18; TEMP 97.9; O2SAT 94
[2016-11-25 08:00] VITALS: BP 122/77; PULSE 88; RESP 18; TEMP 98.3; O2SAT 97
[2016-11-25] MEDS: SODIUM CHLORIDE 0.9% FLUSH 10 ML FLUSH IV FLUSH SCH (08:28)
[2016-11-25 08:47] VITALS: O2SAT 96
[2016-11-25] MEDS: RESP: ALBUTEROL 2.5 MG/IPRATROPIUM 0.5 MG NEB (SCH) NEB ×2 (08:47→11:01)
--- NOTE | 2016-11-25 11:56 | HHI.FPPN ---
Subjective Remarks Patient is a 66 y/o male w/hx of chronic bronchitis admitted for acute pancreatitis. Patient has no pain (did not use pain medications this morning), good appetite, and had a BM this morning. Is ambulating comfortably. Has no complaints. Objective Vitals Vital Signs Date Time Temp Pulse Resp B/P Pulse Ox O2 Delivery O2 Flow Rate FiO2 11/25/16 08:47 96 21 11/25/16 08:00 98.3 88 18 122/77 97 11/25/16 04:00 97.9 66 18 134/70 94 11/25/16 04:00 Room Air 11/25/16 00:00 98.8 73 18 136/70 94 11/25/16 00:00 Room Air 11/24/16 20:00 Room Air 11/24/16 20:00 98.3 72 18 104/60 95 11/24/16 19:56 94 11/24/16 16:00 98.9 74 18 127/62 95 11/24/16 12:05 98.0 70 17 116/67 95 I/O 11/24/16 11/24/16 11/24/16 11/25/16 11/25/16 11/25/16 07:00 15:00 23:00 07:00 15:00 23:00 Intake Total 2013 ml 750 ml 1969 ml 1147 ml Output Total 480 ml 3 ml Balance 2013 ml 270 ml 1969 ml 1144 ml Intake Oral 0 ml 750 ml 480 ml 120 ml IV Total 2013 ml 1489 ml 1027 ml Output Urine Total 480 ml 3 ml # Voids 2 4 # Bowel Movements 0 0 0 0 Result Diagram: 11/24/16 1010 11/24/16 1010 Other Results GENERAL: Well-nourished, well-developed patient, resting comfortably in bed. SKIN: Warm and dry. HEAD: Normocephalic. EYES: No scleral icterus. No injection or drainage. NECK: Supple, trachea midline. No JVD. CARDIOVASCULAR: Regular rate and rhythm without murmurs, gallops, or rubs. RESPIRATORY: Breath sounds equal bilaterally. No accessory muscle use. GASTROINTESTINAL: Abdomen soft, non-tender, nondistended. EXTREMITIES: No cyanosis, or edema. NEUROLOGICAL: Awake, alert, and oriented x 3. Non-focal. Medications and IVs Tylenol Q6H PRN PO, [place] 1 tab Q4 PRN, Lovenox, Duonebs QID, LR w/KCl, morphine 5mg Q3H PRN, Zofran PRN Urinary Catheter: No A/P Assessment and Plan 66 y/o M admitted for acute pancreatitis. CT imaging did not show mass/gallstone /necrosis or any other contributory process, though focal inflammatory change in the pancreas could not be excluded. CEA was ordered to evaluate for possible neoplastic pathology, level was unremarkable. For now, cause suspected to be idiopathic. Patient was counseled to f/u with PCP, MRI imaging of abdomen, and eating less fatty foods. Problem List: (1) Pancreatitis, acute Status: Acute Plan: Acute pancreatis - resolved - last lipase 144 (down from 1046) - patient endorses increased appetite. Currently on liquid diet. - norco, morphine, and tylenol available PRN for residual pain - IVF (2) Chronic bronchitis Status: Chronic Plan: //Chronic bronchitis - duonebs QID - satting well on room air // FEN - FULL liquid diet //Code: DNR //DVT Prophy: Lovenox // Dispo: Today Court Deleon MD PGY1 Problem Qualifiers (1) Pancreatitis, acute: Qualified Code: K85.00 - Idiopathic acute pancreatitis without infection or necrosis (2) Chronic bronchitis: Qualified Code: J42 - Chronic bronchitis, unspecified chronic bronchitis type Court Deleon MD R1 Nov 25, 2016 11:56
== END 2016-11-25 12:45 | disposition home or self-care (01) | DRG 439 ==
LOC: NEPE 12:05 → NEDA 13:17 → OBSVTOIN 15:05 → N04B 16:55
PROVIDERS: ADMIT Family Medicine; ATTEND Family Medicine
DX: K85.00 Idiopathic acute pancreatitis without necrosis or infection (principal); J98.11 Atelectasis; J42 Unspecified chronic bronchitis; R63.4 Abnormal weight loss; Z66 Do not resuscitate; Z68.33 Body mass index [BMI] 33.0-33.9, adult; Z82.49 Family history of ischemic heart disease and other diseases of the circulatory system
CPT/HCPCS: 71010; 74177; 76705; 80048; 80053; 80076; 82150; 82378; 82550; 82552; 83615; 83690; 83735; 84478; 84484; 85025; 85379; 85610; 85730; 93005; 94150; 94640; 94664; 96360; J1650; J2270; J2405; J3480; J7030; J7040; J7120; Q9967

== ENCOUNTER 2018-04-27 11:13 | Observation (INO) ==
[2018-04-27 11:17] VITALS: TEMP 97.5
[2018-04-27 12:25] LABS: Baso # (Auto) 0.1 th/mm3 (0.0-0.2); Baso % (Auto) 1.1 % (0.0-2.0); Eos # (Auto) 0.3 th/mm3 (0.0-0.4); Eos % (Auto) 5.2 % (0.0-4.0); Hematocrit 44.9 % (39.0-51.0); Hemoglobin 15.3 gm/dL (13.0-17.0); Lymph # (Auto) 1.6 th/mm3 (1.0-4.8); Lymph % (Auto) 31.4 % (9.0-44.0); Mean Corpuscular HGB Conc 34.1 % (32.0-36.0); Mean Corpuscular Hemoglobin 31.9 pg (27.0-34.0); Mean Corpuscular Volume 93.4 fL (80.0-100.0); Mono # (Auto) 0.6 th/mm3 (0.0-0.9); Mono % (Auto) 11.5 % (0.0-8.0); Neut # (Auto) 2.5 th/mm3 (1.8-7.7); Neut % (Auto) 50.8 % (16.0-70.0); Platelet Count 157 th/mm3 (150-450); Red Blood Count 4.81 mil/mm3 (4.50-5.90); Red Cell Distribution Width 13.3 % (11.6-17.2)
[2018-04-27 12:33] LABS: Activated Partial Thrombo Time 27.3 sec (23.4-31.7)
[2018-04-27 12:44] LABS: Alanine Aminotransferase 33 U/L (12-78); Albumin 3.3 g/dL (3.4-5.0); Anion Gap 6 meq/L (5-15); Aspartate Aminotransferase 16 U/L (15-37); Blood Urea Nitrogen 21 mg/dL (7-18); Calcium 8.1 mg/dL (8.5-10.1); Chloride 109 meq/L (98-107); Glomerular Filtration Rate 81 mL/min (>89); Glucose,Random 102 mg/dL (74-106); Potassium 3.9 meq/L (3.5-5.1); Sodium 143 meq/L (136-145)
[2018-04-27 12:48] LABS: Alkaline Phosphatase 85 U/L (45-117); Creatine Kinase 179 U/L (39-308); Total Protein 6.7 g/dL (6.4-8.2)
--- NOTE | 2018-04-27 12:54 | XR ---
EXAM DATE: 04/27/2018 12:47 PM EST AGE/SEX: 67 years / Male INDICATIONS: Shortness of breath and chest pain. CLINICAL DATA: This is the patient's initial encounter. Patient reports that signs and symptoms have been present for 1 day and indicates a pain score of 7/10. MEDICAL/SURGICAL HISTORY: Chronic obstructive pulmonary disease. Asthma. None. COMPARISON: [facility], CHEST SINGLE AP, 11/23/2016. . FINDINGS: A single AP view of the chest demonstrates the lungs to be symmetrically aerated without evidence of mass, infiltrate or effusion. The cardiomediastinal contours are unremarkable. Osseous structures a re intact. CONCLUSION: No acute intrathoracic disease. Stable examination. Electronically signed by: Humberto Galvez MD 04/27/2018 12:53 PM EST
[2018-04-27 13:11] LABS: Creatine Kinase MB 2.2 ng/mL (0.5-3.6)
--- NOTE | 2018-04-27 13:42 | US ---
EXAM DATE: 04/27/2018 1:20 PM EST AGE/SEX: 67 years / Male INDICATIONS: Left leg swelling. CLINICAL DATA: This is the patient's initial encounter. Patient reports that signs and symptoms have been present for 1 day and indicates a pain score of 2/10. MEDICAL/SURGICAL HISTORY: . Left leg swelling. None. COMPARISON: No prior exams available for comparison. TECHNIQUE: Venous ultrasound of both lower extremities was performed from the inguinal ligament to t he proximal calf. Real-time, color Doppler and spectral tracing, compression and augmentation techni ques were used. FINDINGS: Normal compression of the deep venous system from the inguinal region to the proximal calf . No echogenic clot is seen. Normal response of the venous system to augmentation and respiration. CONCLUSION: No venous thrombosis is identified within the left lower extremity. Electronically signed by: Riki Sandoval MD 04/27/2018 1:41 PM EST
--- NOTE | 2018-04-27 14:50 | CT ---
EXAM DATE: 04/27/2018 2:43 PM EST AGE/SEX: 67 years / Male INDICATIONS: Chest pain for 1 week CLINICAL DATA: This is the patient's initial encounter. Patient reports that signs and symptoms have been present for 1 week and indicates a pain score of 3/10. MEDICAL/SURGICAL HISTORY: None. None. RADIATION DOSE: 23.52 CTDI (mGy) COMPARISON: [facility], CHEST 1V SINGLE AP, 04/27/2018. . TECHNIQUE: Volumetric scanning was performed using a multi-row detector CT scanner during bolus infu arvin of 71 ml Omnipaque 350 (iohexol) nonionic water-soluble contrast as a single exam dose. The lorelei a was post processed with a variety of visualization algorithms including full volume maximum intensi ty projection and sliding thin slab reformation. Using automated exposure control and adjustment of t he mA and/or kV according to patient size, radiation dose was kept as low as reasonably achievable to obtain optimal diagnostic quality images. DICOM format image data is available electronically for r eview and comparison. FINDINGS: Pulmonary Arteries: No filling defects are seen in the pulmonary arteries out to the subsegmental ve ssels. The left and right pulmonary arteries are normal in diameter. Lung: No infiltrates seen. Effusion: None. Mediastinum: No evidence of mediastinal or hilar adenopathy. Other: The axilla is unremarkable. There is a right renal cyst measuring 3.5 cm along the upper pole the right kidney. CONCLUSION: 1. No evidence of pulmonary embolus. 2. No focal or acute pulmonary infiltrates. Electronically signed by: Humberto Galvez MD 04/27/2018 2:49 PM EST
--- NOTE | 2018-04-27 14:58 | ECG ---
Date Performed: 04/27/2018 Time Performed: 11:43:47 PTAGE: 67 years EKG: SINUS BRADYCARDIA NONSPECIFIC T-WAVE ABNORMALITY BORDERLINE ECG No significant change from prior electrocardiogram. PREVIOUS TRACING : 11/23/2016 12.23 DOCTOR: José Miguel Tolentino Interpretating Date/Time 04/27/2018 14:57:56
--- NOTE | 2018-04-27 15:18 | ED ---
HPI General Chief complaint: Chest Pain Stated complaint: Chest Pain Complaint Time Seen by Provider: 04/27/18 11:57 Source: patient Mode of arrival: ambulatory Limitations: no limitations History of Present Illness HPI narrative: Patient is a 67 year old male who comes in complaining of chest pain. He says he has had the pain on and off for the past 10 days, but today it got worse. He says the pain is in the left side of his chest. He has some shortness of breath with exertion. He denies nausea or vomiting. He denies cough or cold symptoms. Severity is moderate. He took 3 full Aspirin prior to coming in. Related Data Home Medications Medication Instructions Recorded Confirmed No Known Home Medications 04/27/18 04/27/18 Allergies Allergy/AdvReac Type Severity Reaction Status Date / Time No Known Allergies Allergy Verified 04/27/18 11:18 Review of Systems ROS: all other systems reviewed are negative Constitutional Denies chills and Denies fever(s) ENT Denies dizziness Cardiovascular Reports chest pain Respiratory Denies cough and Denies dyspnea Gastrointestinal Denies abdominal pain, Denies nausea and Denies vomiting Musculoskeletal Denies myalgias and Denies arthralgias Integumentary/Breasts Denies sores and Denies wounds Neurologic Denies focal weakness and Denies numbness [facility] Medical History Medical History Patient denies medical problems (Acute) Surgical History Surgical History No history of previous surgery (Acute) Social History Social History Substance History: No History of Abuse Smoking Status: Former smoker Tobacco Type: Cigarettes How Often Do You Have a Drink Containing Alcohol: Monthly or less Recent Travel in [facility] within the Last 8 Weeks: No Recent Out of Country Travel within the Last 8 Weeks: No Immunization History Tetanus Immunization: Unsure Exam Narrative Exam Narrative: GENERAL: Awake and alert, in no acute distress. SKIN: Focused skin assessment warm/dry. No wounds or signs of infection. HEAD: Atraumatic. Normocephalic. EYES: Pupils equal and round. No scleral icterus. No injection or drainage. ENT: Mucous membranes pink and moist. NECK: Trachea midline. No JVD. CARDIOVASCULAR: Regular rate and rhythm. No murmur appreciated. RESPIRATORY: No accessory muscle use. Clear to auscultation. Breath sounds equal bilaterally. GASTROINTESTINAL: Abdomen soft, non-tender, nondistended. MUSCULOSKELETAL: No obvious deformities. No clubbing. No cyanosis. 1+ edema of bilateral lower extremities. Pedal pulses intact. NEUROLOGICAL: Awake and alert. No obvious cranial nerve deficits. Motor grossly within normal limits. Normal speech. PSYCHIATRIC: Appropriate mood and affect; insight and judgment normal. Course Initial Documented Vital Signs Temperature 97.5 F L 04/27/18 11:16 Pulse Rate 68 04/27/18 11:16 Respiratory Rate 18 04/27/18 11:16 Blood Pressure 156/87 H 04/27/18 11:16 Pulse Oximetry 98 04/27/18 11:16 Last Documented Vital Signs Temperature 97.5 F L 04/27/18 11:16 Pulse Rate 69 04/27/18 12:12 Respiratory Rate 16 04/27/18 12:11 Blood Pressure 152/86 H 04/27/18 12:11 Pulse Oximetry 97 04/27/18 12:12 Medical Decision Making MDM Narrative Medical decision making narrative: Patient is a 67 year old male who comes in complaining of left sided chest pain. Exam shows no acute abnormalities. IV established, labs sent. Patient connected to the surveillance system monitor. Labs show no acute abnormalities. CTA chest performed shows no evidence of PE. Patient to be placed in chest pain center for further management. Medical Screen Exam Complete: Yes Emergency Medical Condition: Yes Differential Diagnosis Differential Diagnosis: ACS vs NSTEMi vs STEMI vs PE Medical Records Medical records reviewed: Yes I reviewed the patient's medical records. Lab Data Lab results reviewed: Yes I reviewed the patient's lab results. Result diagrams: 04/27/18 12:06 04/27/18 12:06 Lab Results 04/27/18 04/27/18 04/27/18 Range/Units 12: 12:06 12:06 WBC 5.0 (4.0-11.0) th/mm3 RBC 4.81 (4.50-5.90) mil/mm3 Hgb 15.3 (13.0-17.0) gm/dL Hct 44.9 (39.0-51.0) % MCV 93.4 (80.0-100.0) fL MCH 31.9 (27.0-34.0) pg MCHC 34.1 (32.0-36.0) % RDW 13.3 (11.6-17.2) % Plt Count 157 (150-450) th/mm3 MPV 9.0 (7.0-11.0) fL Neut % (Auto) 50.8 (16.0-70.0) % Lymph % (Auto) 31.4 (9.0-44.0) % [place] % (Auto) 11.5 H (0.0-8.0) % Eos % (Auto) 5.2 H (0.0-4.0) % Baso % (Auto) 1.1 (0.0-2.0) % Neut # (Auto) 2.5 (1.8-7.7) th/mm3 Lymph # (Auto) 1.6 (1.0-4.8) th/mm3 [place] # (Auto) 0.6 (0.0-0.9) th/mm3 Eos # (Auto) 0.3 (0.0-0.4) th/mm3 Baso # (Auto) 0.1 (0.0-0.2) th/mm3 WBC Differential . Differential Comment Auto diff final PT (9.8-11.6) sec INR Ratio APTT (23.4-31.7) sec Sodium 143 (136-145) meq/L Potassium 3.9 (3.5-5.1) meq/L Chloride 109 H (98-107) meq/L Carbon Dioxide 28.0 (21.0-32.0) meq/L Anion Gap 6 (5-15) meq/L BUN 21 H (7-18) mg/dL Creatinine 1.11 (0.60-1.30) mg/dL Estimated GFR 81 L (>89) mL/min Random Glucose 102 (74-106) mg/dL Calcium 8.1 L (8.5-10.1) mg/dL Total Bilirubin 0.4 (0.2-1.0) mg/dL AST 16 (15-37) U/L ALT 33 (12-78) U/L Alkaline Phosphatase 85 (45-117) U/L Total Creatine Kinase (39-308) U/L CK-MB (CK-2) (0.5-3.6) ng/mL Troponin I Less than 0.02 L (0.02-0.05) ng/mL B-Natriuretic Peptide 26 (0-100) pg/mL Total Protein 6.7 (6.4-8.2) g/dL Albumin 3.3 L (3.4-5.0) g/dL 04/27/18 04/27/18 Range/Units 12:06 12:06 WBC (4.0-11.0) th/mm3 RBC (4.50-5.90) mil/mm3 Hgb (13.0-17.0) gm/dL Hct (39.0-51.0) % MCV (80.0-100.0) fL MCH (27.0-34.0) pg MCHC (32.0-36.0) % RDW (11.6-17.2) % Plt Count (150-450) th/mm3 MPV (7.0-11.0) fL Neut % (Auto) (16.0-70.0) % Lymph % (Auto) (9.0-44.0) % [place] % (Auto) (0.0-8.0) % Eos % (Auto) (0.0-4.0) % Baso % (Auto) (0.0-2.0) % Neut # (Auto) (1.8-7.7) th/mm3 Lymph # (Auto) (1.0-4.8) th/mm3 [place] # (Auto) (0.0-0.9) th/mm3 Eos # (Auto) (0.0-0.4) th/mm3 Baso # (Auto) (0.0-0.2) th/mm3 WBC Differential Differential Comment PT 10.0 (9.8-11.6) sec INR 1.0 Ratio APTT 27.3 (23.4-31.7) sec Sodium (136-145) meq/L Potassium (3.5-5.1) meq/L Chloride (98-107) meq/L Carbon Dioxide (21.0-32.0) meq/L Anion Gap (5-15) meq/L BUN (7-18) mg/dL Creatinine (0.60-1.30) mg/dL Estimated GFR (>89) mL/min Random Glucose (74-106) mg/dL Calcium (8.5-10.1) mg/dL Total Bilirubin (0.2-1.0) mg/dL AST (15-37) U/L ALT (12-78) U/L Alkaline Phosphatase (45-117) U/L Total Creatine Kinase 179 (39-308) U/L CK-MB (CK-2) 2.2 (0.5-3.6) ng/mL Troponin I (0.02-0.05) ng/mL B-Natriuretic Peptide (0-100) pg/mL Total Protein (6.4-8.2) g/dL Albumin (3.4-5.0) g/dL Imaging Data Radiologist's impression: Chest X-Ray 04/27/18 12:03 CONCLUSION: No acute intrathoracic disease. Stable examination. Chest CTA 04/27/18 12:43 CONCLUSION: 1. No evidence of pulmonary embolus. 2. No focal or acute pulmonary infiltrates. Venous Doppler Study 04/27/18 12:43 CONCLUSION: No venous thrombosis is identified within the left lower extremity. ECG Data EKG Prior to Arrival: No Attestation: I personally reviewed and interpreted this ECG as follows: Interpretation: ECG shows NSR at 58, no ST elevation or depression, normal intervals. Discharge Plan Discharge Disposition Patient Disposition: ED Admit(ED Internal Use Only) Discharge Condition Condition: Stable Discharge Order Discharge Orders: ED Use Only Admit Order (Routine); Ordered 04/27/18 Ordered By: Divina Brady Discharge Details Diagnosis: Atypical chest pain Physicians Team ED Provider: Divina Brady Primary Care Provider: [facility] 's Attending Provider: Álvaro Avery Discharge Interventions Interventions: Vital Signs Last Done: 04/27/18 11:17 Status ED Status: Admitted Observation Patient
[2018-04-27 15:46] VITALS: BP 159/96; PULSE 63; RESP 14; O2SAT 98
--- NOTE | 2018-04-27 16:23 | P.HPCA ---
History of Present Illness Primary Care Physician: [facility] Chief Complaint: Chest pain History of Present Illness: This is a 67-year-old male that presents to ED with a history of hypertension, hyperlipidemia, diabetes, and CAD with complaint of chest pain for 10 days. Patient states this is been intermittent. Is left-sided. It can be sharp and a pressure. When it occurs will last for 6 hours. Nothing in particular has made it worse or better when it is present. Found nothing to bring it on. He has had a little bit of a cough. Been nonproductive. No fevers or chills. Denies recent travel. Cannot recall any recent stress testing or heart catheterization. Denies history of hypertension, hyperlipidemia, diabetes, and known CAD. His father at age 62 of congestive heart failure. Patient is a non-smoker. - Diagnosis (1) Chest pain Review of Systems General: Patient denies fevers, chills, and recent travel. HEENT: Patient denies headache, sore throat, difficulty swallowing. Cardiovascular: Has the chest discomfort as mentioned above. Denies sensation of heart beating rapidly or irregularly. No syncope. Denies diaphoresis. Respiratory: Has had nonproductive cough. Denies shortness of breath or inspirational chest discomfort. Denies wheezing or hemoptysis. GI: Patient denies nausea, vomiting, diarrhea, abdominal pain, bloody stools. Musculoskeletal: Patient denies joint pain or edema. Denies calf pain or edema. Neurovascular: Patient denies numbness, tingling, weakness in extremities. Denies headache. Endocrine: Denies polyuria and polydipsia. Hematologic: Denies easy bruising. Skin: Denies rash or itching. PMFSH - History History Provided By: Patient - Medical History Medical History: Medical History (Last Reviewed 04/27/18 @ 15:13 by Divina Brady MD) Patient denies medical problems - Surgical History Surgical History: Surgical History (Last Reviewed 04/27/18 @ 15:13 by Divina Brady MD) No history of previous surgery - Tobacco History Tobacco Use In Past 30 Days: Yes Smoking Status: Former smoker Tobacco Type: Cigarettes - Alcohol History How Often Do You Have a Drink Containing Alcohol: Monthly or less - Substance Use History Substance History: No History of Abuse - Travel History Recent Travel in the [place] Within the Last 8 Weeks: No Recent Travel Out of the Country Within the Last 8 Weeks: No - Immunization History Tetanus Immunization: Unsure Medications and Allergies Active Medications: Active Medications Sodium Chloride (Ns Flush) 2 ml IV.FLUSH UNSCH PRN PRN Reason: FLUSH AFTER USING IV ACCESS Allergies Allergy/AdvReac Type Severity Reaction Status Date / Time No Known Allergies Allergy Verified 04/27/18 11:18 Home Medications Medication Instructions Recorded Confirmed Type No Known Home Medications 04/27/18 04/27/18 History Exam Vital signs: Vital Signs 04/27/18 11:16 04/27/18 11:17 04/27/18 12:11 Temperature 97.5 F L Pulse Rate 68 70 69 Respiratory Rate 18 16 Blood Pressure 156/87 H 152/86 H Pulse Oximetry 98 97 04/27/18 12:12 04/27/18 15:44 Temperature Pulse Rate 69 63 Respiratory Rate 14 Blood Pressure 159/96 H Pulse Oximetry 97 98 Intake & Output 04/26/18 04/27/18 04/27/18 18:59 06:59 18:59 Weight 127.006 kg Narrative: GENERAL: This is a well-nourished, well-developed patient, in no apparent distress. Patient speaks in clear complete sentences. Patient is pleasant. HEENT: Head is atraumatic and normocephalic. Neck is supple without lymphadenopathy and trachea is midline. No JVD or carotid bruits. CARDIOVASCULAR: Regular rate and rhythm without murmurs, gallops, or rubs. RESPIRATORY: Clear to auscultation. Breath sounds equal bilaterally. No wheezes , rales, or rhonchi. Chest wall is nontender. No use of accessory muscles. GASTROINTESTINAL: Abdomen is nontender, nondistended. Abdomen soft. No obvious pulsatile mass or bruit. No CVA tenderness. Strong femoral pulses bilaterally. Normal bowel sounds in all quadrants. MUSCULOSKELETAL: Patient is moving upper and lower extremities freely. No calf tenderness or edema, no Homans sign. Strong pulses in upper and lower extremities. NEUROLOGICAL: Patient is alert and oriented. Cranial nerves 2-12 are grossly intact. No focal deficits and speech is clear. SKIN: No rash and turgor is normal. Results 04/27/18 12:06 04/27/18 12:06 Cardiac Enzymes 12/03/18 12/03/18 12/03/18 Range/Units 12:06 12:06 12:06 AST 16 (15-37) U/L CK-MB (CK-2) 2.2 (0.5-3.6) ng/mL Troponin I Less than 0.02 L (0.02-0.05) ng/mL B-Natriuretic Peptide 26 (0-100) pg/mL Coagulation 04/27/18 04/27/18 Range/Units 12:06 12:06 PT 10.0 (9.8-11.6) sec APTT 27.3 (23.4-31.7) sec B-Natriuretic Peptide 26 (0-100) pg/mL CBC 04/27/18 Range/Units 12:06 WBC 5.0 (4.0-11.0) th/mm3 RBC 4.81 (4.50-5.90) mil/mm3 Hgb 15.3 (13.0-17.0) gm/dL Hct 44.9 (39.0-51.0) % Plt Count 157 (150-450) th/mm3 Neut # (Auto) 2.5 (1.8-7.7) th/mm3 Lymph # (Auto) 1.6 (1.0-4.8) th/mm3 [place] # (Auto) 0.6 (0.0-0.9) th/mm3 Eos # (Auto) 0.3 (0.0-0.4) th/mm3 Baso # (Auto) 0.1 (0.0-0.2) th/mm3 Comprehensive Metabolic Panel 04/27/18 Range/Units 12:06 Sodium 143 (136-145) meq/L Potassium 3.9 (3.5-5.1) meq/L Chloride 109 H (98-107) meq/L Carbon Dioxide 28.0 (21.0-32.0) meq/L BUN 21 H (7-18) mg/dL Creatinine 1.11 (0.60-1.30) mg/dL Calcium 8.1 L (8.5-10.1) mg/dL AST 16 (15-37) U/L ALT 33 (12-78) U/L Alkaline Phosphatase 85 (45-117) U/L Total Protein 6.7 (6.4-8.2) g/dL Albumin 3.3 L (3.4-5.0) g/dL Intake and Output 04/27/18 04/27/18 04/27/18 06:59 14:59 22:59 Other: Weight 127.006 kg Patient Weight 04/28/18 06:59 Weight 127.006 kg - Imaging and Cardiology Imaging: Impressions Chest X-Ray 04/27/18 12:03 CONCLUSION: No acute intrathoracic disease. Stable examination. Chest CTA 04/27/18 12:43 CONCLUSION: 1. No evidence of pulmonary embolus. 2. No focal or acute pulmonary infiltrates. Venous Doppler Study 04/27/18 12:43 CONCLUSION: No venous thrombosis is identified within the left lower extremity. Caprini VTE Risk Assessment Caprini VTE Risk Assessment: Moderate/High Risk (score >= 2) Caprini Risk Assessment Model: Point Value = 1 Point Value = 2 Point Value = 3 Point Value = 5 Age 41-60 Minor surgery BMI > 25 kg/m2 Swollen legs Varicose veins or History of unexplained or recurrent spontaneous Oral contraceptives or hormone replacement Sepsis (< 1 month) Serious lung disease, including pneumonia (< 1 month) Abnormal pulmonary function Acute myocardial infarction Congestive heart failure (< 1 month) History of inflammatory bowel disease Medical patient at bed rest Age 61-74 Arthroscopic surgery Major open surgery (> 45 min) Laparoscopic surgery (> 45 min) Malignancy Confined to bed (> 72 hours) Immobilizing plaster cast Central venous access Age >= 75 History of VTE Family history of VTE Factor V Leiden Prothrombin [id number] Lupus anticoagulant Anticardiolipin antibodies Elevated serum homocysteine Heparin-induced thrombocytopenia Other congenital or acquired thrombophilia Stroke (< 1 month) Elective arthroplasty Hip, pelvis, or leg fracture Acute spinal cord injury (< 1 month) Prophylaxis Regimen: Total Risk Factor Score Risk Level Prophylaxis Regimen 0-1 Low Early ambulation 2 Moderate Order ONE of the following: *Sequential Compression Device (SCD) *Heparin 5000 units SQ BID 3-4 Higher Order ONE of the following medications: *Heparin 5000 units SQ TID *Enoxaparin/Lovenox 40 mg SQ daily (WT < 150 kg, CrCl > 30 mL/min) *Enoxaparin/Lovenox 30 mg SQ daily (WT < 150 kg, CrCl > 10-29 mL/min) *Enoxaparin/Lovenox 30 mg SQ BID (WT < 150 kg, CrCl > 30 mL/min) AND/OR *Sequential Compression Device (SCD) 5 or more Highest Order ONE of the following medications: *Heparin 5000 units SQ TID (Preferred with Epidurals) *Enoxaparin/Lovenox 40 mg SQ daily (WT < 150 kg, CrCl > 30 mL/min) *Enoxaparin/Lovenox 30 mg SQ daily (WT < 150 kg, CrCl > 10-29 mL/min) *Enoxaparin/Lovenox 30 mg SQ BID (WT < 150 kg, CrCl > 30 mL/min) AND *Sequential Compression Device (SCD) Assessment and Plan - Assessment (1) Chest pain Code(s): R07.9 - Chest pain, unspecified Status: Acute - Plan * Chest pain: Patient had first set of cardiac enzymes and EKGs and was seen by Dr. Álvaro Avery of cardiology chest pain center. At this time he will undergo a Matias protocol ETT and he will be discharged home if the stress test is nonischemic with instructions to follow-up with PCP and return to ED for interval issues. Patient is stable at this time. He is agreeable to this plan.
--- NOTE | 2018-04-28 08:09 | TR ---
Date Performed: 04/27/2018 Time Performed: 16:22:03 DOCTOR: Renee Tijerina DRUG LIST: CLINICAL HISTORY: REASON FOR TEST: Chest pain REASON FOR ENDING: OBSERVATION: CONCLUSION: VICTORIA PROTOCOL. NO CP. TEST STOPPED AFTER EXCEEDING GOAL HR SECONDARY TO SOB AND LEG FATIGUE.Maximum AY=699 % Max HR Achieved=87.0% Maximum VU=160/80 Total Exercise Time=6:40 No ischem ia COMMENTS: no ischemia
== END 2018-04-27 18:13 | disposition home or self-care (01) ==
LOC: NEPE 11:13 → NEDA 11:13 → NEPGCP 16:04
PROVIDERS: ADMIT Internal Medicine Cardiovascular Disease; ATTEND Internal Medicine Cardiovascular Disease